=== PATIENT | female | born 1935 | race Hispanic/Latino ===

== ENCOUNTER → 2017-12-04 | Outpatient (CLI) | payer MEDICARE ==
[~2017-12-04] MED LIST: ACETAMINOPHEN325 M1 PO; EVISTA60 MG PO; LOSARTAN PO; MACRODANTIN100 MG PO
--- NOTE | 2017-12-04 18:59 | Diagnostic Imaging Report ---
PROCEDURE:MODIFIED BA. SWALLOW COMPARISON:None. INDICATIONS:Dysphasia. DISCUSSION: Fluoroscopic examination was performed in conjunction with speech pathology during swallowing of a variety of thin and thick liquid consistencies. RADIATION DOSE: Total Time: 4.1 min Cumulative area dose product: 20.63 cGym\S\2 Cumulative air kerma: 2.061 mGy FINDINGS: PREMATURE SPILLAGE: Over the base of the tongue: With thin liquids only. To vallecula: With thin liquids only To pyriform sinus: None LARYNGEAL PENETRATION: Deep penetration into the laryngeal vestibule with thin liquids only to the level of the vocal cords. ASPIRATION: Silent minimal aspiration of thin liquids. Aspiration from residual from the piriformis sinus that spilled over during subsequent swallows. RESIDUE: VALLECULA: Moderate with all consistencies. Multiple swallows to reduce the residual amount. PYRIFORM SINUS: Severe with all consistencies. Multiple swallows to reduce the residual amount. Aspiration from residual. PHARYNGEAL WALL: Minimal to moderate with all consistencies BASE OF TONGUE: Minimal with all consistencies CONCLUSION:Aspiration with thin liquids and residual from the piriformis sinus. Please see report from speech pathology for complete details. Dictated by: Mani Loja M.D. on 12/04/2017 at 19:09 Electronically approved by: Mani Loja M.D. on 12/04/2017 at 19:09
== END ==
LOC: DX 12:06
PROVIDERS: ATTEND Otolaryngology
DX: R13.14 Dysphagia, pharyngoesophageal phase (principal)
CPT/HCPCS: 74230; 92611; G8996; G8997; G8998

== ENCOUNTER → 2018-01-22 | Outpatient (CLI) | payer MEDICARE ==
--- NOTE | 2018-01-22 08:36 | Diagnostic Imaging Report ---
PROCEDURE:ESOPHAGRAM INDICATION:Preprocedural evaluation. Pharyngoesophageal dysphasia COMPARISON:None. TECHNIQUE: Thick barium was administered via a straw. Fluoroscopy time: 1.2 minutes. Cumulative air kerma: 2.363 mGy FINDINGS: There is fulminant, large volume silent aspiration after premature spillage. The esophagus demonstrates generalized dysmotility, with poor bolus pulsion. No conspicuous coordinated esophageal motility. No tertiary waves. Caliber is grossly normal. Given aspiration the procedure was terminated. CONCLUSION: 1. Fulminant silent aspiration with subsequent study termination. 2. Esophageal dysmotility, with poor bolus pulsion. 3. Limited evaluation of the esophagus, with grossly normal caliber and mucosal contour. Dictated by: Sterling Vela M.D. on 01/22/2018 at 8:36 Electronically approved by: Sterling Vela M.D. on 01/22/2018 at 8:36
== END ==
LOC: DX 07:23
PROVIDERS: ATTEND Otolaryngology
DX: R13.14 Dysphagia, pharyngoesophageal phase (principal)
CPT/HCPCS: 74220